=== PATIENT | female | born 1985 ===

== ENCOUNTER 2020-06-06 07:45 | Inpatient (IN) ==
[2020-06-06] MEDS ORDERED: Oxytocin 20 units/ LR 1000 mL 20 UNIT/1,000 ML BAG IVC ONE (10:21)
[2020-06-06] MEDS ORDERED: Ringers Solution, Lactated 1,000 ML IVC ONE (10:21)
[2020-06-06] MEDS ORDERED: Famotidine 20 MG/2 ML VIAL IVP ONE (10:21)
[2020-06-06] MEDS ORDERED: CeFAZolin 2,000 MG/50 ML BAG IVPB ONE (10:21)
[2020-06-06] MEDS ORDERED: Metoclopramide 10 MG/2 ML VIAL IVP ONE (10:21)
[2020-06-06] MEDS ORDERED: Ringers Solution, Lactated 1,000 ML IVC SCH (10:30)
[2020-06-06] MEDS ORDERED: Oxytocin 20 units/ LR 1000 mL 20 UNIT/1,000 ML BAG IVC SCH (10:30)
[2020-06-06 11:26] LABS: Basophils % 0.3 %; Eosinophils # 0.1 K/mcL (0.0-0.6); Eosinophils % 1.4 %; Hematocrit 35.7 % (35.3-44.9); Hemoglobin 12.2 g/dL (11.5-15.4); Immature Granulocytes % 1.4 % (0-4); Lymphocytes # 1.3 K/mcL (0.6-4.6); Lymphocytes % 14.3 %; Mean Corpuscular HGB Conc 34.2 g/dL (31.6-35.5); Mean Corpuscular Hemoglobin 32.1 pg (28.0-33.3); Mean Corpuscular Volume 93.9 fL (83.0-100.0); Monocytes # 0.7 K/mcL (0.0-1.3); Monocytes % 7.9 %; Neutrophils # 6.8 K/mcL (1.6-8.9); Nucleated Red Blood Cells 0.2 /100 WBC (0); Platelet Count 181 K/mcL (140-400); Red Cell Distribution Width 12.7 % (11.5-14.5); Segmented Neutrophils % 74.7 %; White Blood Count 9.2 K/mcL (4.3-11.1)
[2020-06-06 11:47] LABS: Alanine Aminotransferase 10 Units/L (7-52); Aspartate Amino Transferase 16 Units/L (13-39); BUN/Creatinine Ratio 21 (6-26); Blood Urea Nitrogen 10 mg/dL (6-20); Lactate Dehydrogenase 145 Units/L (140-271); Uric Acid 5.5 mg/dL (2.3-7.6); eGFR For African Americans > 60 (> 60); eGFR For Non-African Americans > 60 (> 60)
[2020-06-06] MEDS ORDERED: *HR* Morphine Sulfate/PF 10 MG/10 ML AMPUL ONE (14:37)
[2020-06-06] MEDS ORDERED: *HR* FentaNYL (PF) 100 MCG/2 ML VIAL ONE (14:38)
[2020-06-06] MEDS ORDERED: EPHEDrine 50 MG/ML VIAL ONE (14:38)
[2020-06-06] MEDS ORDERED: Ondansetron 4 MG/2 ML VIAL IVP ONE (15:42)
[2020-06-06] MEDS ORDERED: *HR* Promethazine 25 MG/ML VIAL IVP PRN (15:42)
[2020-06-06] MEDS ORDERED: *HR* OxyCODONE Immed Rel 5 MG TABLET PO PRN ×2 (15:42→19:34)
[2020-06-06] MEDS ORDERED: *HR* HYDROmorphone PF 0.5 MG/0.5 ML SYRINGE IVP PRN (15:42)
[2020-06-06] MEDS ORDERED: Ondansetron 4 MG/2 ML VIAL ONE (15:53)
[2020-06-06] MEDS ORDERED: Dexamethasone 4 MG/ML VIAL ONE (15:53)
[2020-06-06] MEDS ORDERED: Acetaminophen IV 1,000 MG/100 ML BAG ONE (15:53)
[2020-06-06 19:01] LABS: Protein/Creatinine Ratio,Urine 0.2 mg/mg (0.00-0.20)
[2020-06-06 19:02] LABS: Amphetamine Screen,Urine Negative ng/mL (Cutoff=1000); Barbiturate Screen,Urine Negative ng/mL (Cutoff=200); Benzodiazepines Screen,Urine Negative ng/mL (Cutoff=200); Cannabinoid Screen,Urine Negative ng/mL (Cutoff = 50); Cocaine Screen,Urine Negative ng/mL (Cutoff= 300); Opiate Screen,Urine Negative ng/mL (Cutoff=300); Phencyclidine Screen,Urine Negative ng/mL (Cutoff=25)
[2020-06-06] MEDS ORDERED: Metoclopramide 10 MG/2 ML VIAL IVP PRN (19:34)
[2020-06-06] MEDS ORDERED: Ondansetron 4 MG/2 ML VIAL IVP PRN (19:34)
[2020-06-06] MEDS ORDERED: Sennosides 8.6 MG TABLET PO PRN (19:34)
[2020-06-06] MEDS ORDERED: Simethicone 80 MG TAB.CHEW PO PRN (19:34)
[2020-06-06] MEDS ORDERED: Acetaminophen 325 MG TABLET PO PRN (19:34)
[2020-06-06] MEDS: Oxytocin 20 units/ LR 1000 mL 20 UNIT/1,000 ML BAG IVC SCH (19:55)
[2020-06-07] MEDS: Oxytocin 20 units/ LR 1000 mL 20 UNIT/1,000 ML BAG IVC SCH (04:02)
[2020-06-07] MEDS: Ibuprofen 600 MG TABLET PO PRN ×2 (05:24→20:17)
[2020-06-07 07:44] LABS: Basophils % 0.2 %; Eosinophils # 0.1 K/mcL (0.0-0.6); Eosinophils % 0.4 %; Hematocrit 28.1 % (35.3-44.9); Immature Granulocytes % 0.5 % (0-4); Lymphocytes # 1.7 K/mcL (0.6-4.6); Lymphocytes % 12.5 %; Mean Corpuscular HGB Conc 33.8 g/dL (31.6-35.5); Mean Corpuscular Volume 94.6 fL (83.0-100.0); Mean Platelet Volume 11.1 fL (9.4-12.4); Monocytes # 0.9 K/mcL (0.0-1.3); Monocytes % 6.6 %; Neutrophils # 10.8 K/mcL (1.6-8.9); Platelet Count 173 K/mcL (140-400); Red Blood Count 2.97 M/mcL (3.82-4.97); Red Cell Distribution Width 12.8 % (11.5-14.5); Segmented Neutrophils % 79.8 %; White Blood Count 13.5 K/mcL (4.3-11.1)
[2020-06-07 07:45] LABS: Hemoglobin 9.5 g/dL (11.5-15.4)
[2020-06-07] MEDS: Prenatal Vit/FA 1 EACH TABLET PO SCH (08:17)
[2020-06-07] MEDS ORDERED: Lanolin 7 G OINT...G. TP PRN (20:13)
[2020-06-08 08:02] VITALS: BP 140/88
[2020-06-08] MEDS: Prenatal Vit/FA 1 EACH TABLET PO SCH (08:52)
[2020-06-08] MEDS: Ibuprofen 600 MG TABLET PO PRN (08:53)
== END 2020-06-08 11:15 | disposition home or self-care (01) | DRG 787 ==
LOC: 1NENULAB 10:16 → 1NENUOBS 19:33
PROVIDERS: ADMIT Obstetrics & Gynecology; ATTEND Obstetrics & Gynecology